=== PATIENT | male | born 1950 | race Caucasian/White ===

== ENCOUNTER → 2017-08-18 11:38 | Outpatient (CLI) | payer OTHER, SELFPAY ==
[2017-08-18 13:14] LABS: PSA,Total- Diagnostic 0.03 ng/mL (0.0-4.0)
== END ==
DX: Z85.46 Personal history of malignant neoplasm of prostate (principal)
CPT/HCPCS: 36415; 84153

== ENCOUNTER → 2017-10-28 05:47 | Outpatient (CLI) | payer OTHER, SELFPAY ==
[2017-10-28 07:36] LABS: PSA,Total- Diagnostic 0.02 ng/mL (0.0-4.0); Thyroid Stim Hormone (TSH) 2.41 uIU/mL (0.358-3.74)
== END ==
PROVIDERS: Visit Provider Urology
DX: C61 Malignant neoplasm of prostate (principal); E03.9 Hypothyroidism, unspecified; R97.20 Elevated prostate specific antigen [PSA]
CPT/HCPCS: 36415; 84153; 84443

== ENCOUNTER → 2017-12-09 06:16 | Outpatient (CLI) | payer OTHER, SELFPAY ==
--- NOTE | 2017-12-09 14:45 | NEURO ---
NCS and/or EMG Patient Report Ordering Doctor: Salinas Koehler DATE OF SERVICE: 12/09/17 Kenton Berman is a 67-year-old male presents for electrodiagnostic testing of the right lower limb. He reports numbness and tingling of the right great toe was muscle spasms in the right leg. Electrodiagnostic findings: Right peroneal motor nerve demonstrates normal distal latency, amplitude and conduction velocity. Normal right tibial motor response. Mildly prolonged right tibial F wave. H reflex borderline prolonged bilaterally. Sensory responses are within normal limits. Needle EMG testing shows no evidence of denervation with normal motor unit action potentials. Electrodiagnostic impression: This is an essentially normal study of the right lower limb. There is no electrodiagnostic evidence for peripheral neuropathy or lumbosacral radiculopathy. Next If there are any further questions, please not hesitate to contact me
== END ==
PROVIDERS: Visit Provider Family Medicine
DX: R20.2 Paresthesia of skin (principal)
CPT/HCPCS: 95886; 95910

== ENCOUNTER → 2017-12-25 05:51 | Outpatient (CLI) | payer OTHER, SELFPAY ==
[2017-12-25 06:38] LABS: Absolute Lymphocyte Count 1.58 X10^3/ul (0.83-4.51); Absolute Neutrophil Count 3.1 X10^3/uL (2.0-7.7); Basophil# 0.02 X10^3/uL; Basophil% 0.4 % (0-1); Eosinophil# 0.14 X10^3/uL; Eosinophils% 2.5 % (0-5); Hematocrit 43.5 % (40-54); Hemoglobin 14.5 g/dl (13.0-16.5); Lymphocyte # 1.58 X10^3/ul (4.0); Lymphocyte % 28.3 % (19-41); Mean Corp Hgb Conc 33.3 g/gl (32-36); Mean Corpuscular Hgb 30.3 pg (27.0-32.0); Mean Corpuscular Volume 90.8 fL (80-94); Mean Platelet Vol. 9.9 fl (6.2-12.0); Monocyte% 12.5 % (0-10); Neutrophil # 3.14 X10^3/uL (2.7-7.7); Neutrophil % 56.3 % (47-70); Platelet Count 253 K/mm3 (150-450); RBC Distribution Width CV 12.4 % (11.6-14.6); RBC Distribution Width SD 40.7 fl (35.1-43.9); Red Blood Count 4.79 M/mm3 (4.6-6.2); White Blood Count 5.6 K/mm3 (4.4-11.0)
[2017-12-25 06:39] LABS: Erythrocyte Sedimentation Rate 4 mm/hr (0-20); POSITIVE COUNT NO; POSITIVE DIFFERENTIAL NO; POSITIVE MORPHOLOGY NO
[2017-12-25 06:58] LABS: ALB/GLOB Ratio 1.1 RATIO (0.9-2.4); AST(SGOT) 27 U/L (15-37); Alanine Aminotransfer ALT/SGPT 36 U/L (16-61); Albumin, Serum 3.5 g/dL (3.2-5.0); Alkaline Phosphatase 73 U/L (45-117); Anion Gap 6 (5-15); BUN 23 mg/dL (7-18); BUN/Creat Ratio 24.1 RATIO (10-20); Calcium,Total 9.4 mg/dL (8.5-10.1); Chloride 109 mmol/L (98-107); Creatinine, Serum 0.96 mg/dL (0.70-1.30); EST Glomerular Filtration Rate 84 mL/min (>60); Est Glom Filt Rate - Afr Amer 101 mL/min (>60); Free T3 2.5 pg/mL (2.18-3.98); Globulin 3.2 g/dL (2.2-4.2); Glucose 91 mg/dL (74-106); Potassium 4.4 mmol/L (3.5-5.1); Protein, Total 6.7 g/dL (6.4-8.2); Rheumatoid Factor < 10.0 IU/mL (<15); Sodium Level 140 mmol/L (136-145); T3 Uptake 35 % (33-40); T4 Total, Thyroxin 7.9 ug/dL (4.5-12.1); T7 / Free Thyroxin Index 2.8 (1.4-4.5); Thyroid Stim Hormone (TSH) 2.31 uIU/mL (0.358-3.74)
[2017-12-25 07:01] LABS: Homocysteine 9.1 umol/L (3.2-10.7)
[2017-12-25 09:47] LABS: Hemoglobin A1c 5.6 % (4.2-6.3)
[2017-12-25 12:43] LABS: Vitamin B12 313 pg/mL (211-911)
[2017-12-28 16:10] LABS: Immunoglobulin A 295 mg/dL (61-437); Immunoglobulin G 746 mg/dL (700-1600); PROEL- A/G Ratio 1.4 (0.7-1.7); PROEL- Albumin 3.7 g/dL (2.9-4.4); PROEL- Alpha-1 Globulin 0.2 g/dL (0.0-0.4); PROEL- Alpha-2 Globulin 0.6 g/dL (0.4-1.0); PROEL- Gamma Globulin 0.8 g/dL (0.4-1.8); PROEL- Globulin, Total 2.7 g/dL (2.2-3.9); PROEL- TOTAL PROTEIN 6.4 g/dL (6.0-8.5)
[2017-12-29 08:43] LABS: Immunoglobulin M 64 mg/dL (20-172)
== END ==
PROVIDERS: Visit Provider Psychiatry & Neurology Neurology
DX: M54.9 Dorsalgia, unspecified (principal); R20.2 Paresthesia of skin
CPT/HCPCS: 36415; 80053; 82607; 82746; 82784; 83036; 83090; 83921; 84165; 84436; 84443; 84479; 84481; 85025; 85652; 86038; 86334; 86431

== ENCOUNTER → 2018-05-03 05:55 | Outpatient (CLI) | payer OTHER, SELFPAY ==
[2018-05-03 08:33] LABS: Color, Urine Yellow (Yellow); Glucose, Dipstick Normal (Normal); Ketone-Dipstick Negative (Negative); Leukocyte Esterase-Dipstick Negative /ul (Negative); Nitrite-Dipstick Negative (Negative); Occult Blood-Urine 10 /ul (Negative); Protein-Dipstick Negative (Negative); Specific Gravity, Urine 1.015 (1.002-1.030); Urine Bilirubin Dipstick Negative (Negative); Urine Clarity Clear (Clear); Urine Urobilinogen Normal (Normal)
[2018-05-03 08:38] LABS: Absolute Lymphocyte Count 2.12 X10^3/ul (0.83-4.51); Absolute Neutrophil Count 3.8 X10^3/uL (2.0-7.7); Basophil# 0.01 X10^3/uL; Basophil% 0.1 % (0-1); Eosinophil# 0.25 X10^3/uL; Eosinophils% 3.5 % (0-5); Hematocrit 45.9 % (40-54); Hemoglobin 14.8 g/dl (13.0-16.5); Lymphocyte # 2.12 X10^3/ul (4.0); Lymphocyte % 29.7 % (19-41); Mean Corp Hgb Conc 32.2 g/gl (32-36); Mean Corpuscular Hgb 29.5 pg (27.0-32.0); Mean Corpuscular Volume 91.6 fL (80-94); Mean Platelet Vol. 9.9 fl (6.2-12.0); Monocyte# 0.99 X10^3/uL; Monocyte% 13.8 % (0-10); Neutrophil # 3.77 X10^3/uL (2.7-7.7); Neutrophil % 52.8 % (47-70); POSITIVE COUNT NO; POSITIVE DIFFERENTIAL NO; POSITIVE MORPHOLOGY NO; Platelet Count 274 K/mm3 (150-450); Red Blood Count 5.01 M/mm3 (4.6-6.2); White Blood Count 7.2 K/mm3 (4.4-11.0)
[2018-05-03 09:07] LABS: ALB/GLOB Ratio 1.1 RATIO (0.9-2.4); AST(SGOT) 28 U/L (15-37); Alanine Aminotransfer ALT/SGPT 34 U/L (16-61); Albumin, Serum 3.5 g/dL (3.2-5.0); Alkaline Phosphatase 75 U/L (45-117); Anion Gap 7 (5-15); BUN 19 mg/dL (7-18); BUN/Creat Ratio 17.9 RATIO (10-20); Calcium,Total 9.5 mg/dL (8.5-10.1); Chloride 105 mmol/L (98-107); Cholesterol 140 mg/dL (200); Creatinine, Serum 1.06 mg/dL (0.70-1.30); EST Glomerular Filtration Rate 74 mL/min (>60); Est Glom Filt Rate - Afr Amer 90 mL/min (>60); Globulin 3.1 g/dL (2.2-4.2); Glucose 77 mg/dL (74-106); High Density Lipoprotein 45 mg/dL; PSA,Total- Diagnostic 0.03 ng/mL (0.0-4.0); Potassium 4.2 mmol/L (3.5-5.1); Protein, Total 6.6 g/dL (6.4-8.2); Sodium Level 140 mmol/L (136-145); Thyroid Stim Hormone (TSH) 3.56 uIU/mL (0.358-3.74); Triglycerides 84 mg/dL; Very Low Density Lipoprotein 17 mg/dL (5-40)
== END ==
PROVIDERS: Referring Provider Family Medicine; Visit Provider Family Medicine
DX: Z00.00 Encounter for general adult medical examination without abnormal findings (principal); I10 Essential (primary) hypertension; E03.9 Hypothyroidism, unspecified; C61 Malignant neoplasm of prostate
CPT/HCPCS: 36415; 80053; 80061; 81002; 84153; 84443; 85025

== ENCOUNTER → 2018-10-05 06:27 | Outpatient (CLI) | payer OTHER, SELFPAY ==
[2018-08-02 07:00] VITALS: BMI 27.2
[2018-10-05 08:45] LABS: PSA,Total- Diagnostic 0.03 ng/mL (0.0-4.0)
== END ==
PROVIDERS: Family Provider Family Medicine; PCP Family Medicine; Visit Provider Urology
DX: C61 Malignant neoplasm of prostate (principal)
CPT/HCPCS: 36415; 84153

== ENCOUNTER → 2019-05-06 05:50 | Outpatient (CLI) | payer OTHER, SELFPAY ==
[2018-08-02 07:00] VITALS: BMI 27.2
[2019-05-06 06:56] LABS: Hematocrit 47.8 % (40-54); Hemoglobin 15.4 g/dL (13.0-16.5); Mean Corp Hgb Conc 32.2 g/dL (32-36); Mean Corpuscular Hgb 29.8 pg (27.0-32.0); Mean Corpuscular Volume 92.6 fL (80-94); Mean Platelet Vol. 9.3 fl (6.2-12.0); Platelet Count 272 K/mm3 (150-450); RBC Distribution Width CV 12.6 % (11.6-14.6); RBC Distribution Width SD 43.2 fl (35.1-43.9); Red Blood Count 5.16 M/mm3 (4.6-6.2); White Blood Count 8.1 K/mm3 (4.4-11.0)
[2019-05-06 07:30] LABS: ALB/GLOB Ratio 1.2 RATIO (0.9-2.4); AST(SGOT) 25 U/L (15-37); Alanine Aminotransfer ALT/SGPT 15 U/L (16-61); Albumin, Serum 3.7 g/dL (3.2-5.0); Alkaline Phosphatase 78 U/L (45-117); Anion Gap 5 (5-15); BUN 22 mg/dL (7-18); Calcium,Total 10.3 mg/dL (8.5-10.1); Chloride 109 mmol/L (98-107); Cholesterol 178 mg/dL (200); Creatinine, Serum 1.05 mg/dL (0.70-1.30); EST Glomerular Filtration Rate 75 mL/min (>60); Est Glom Filt Rate - Afr Amer 91 mL/min (>60); Globulin 3.2 g/dL (2.2-4.2); Glucose 92 mg/dL (74-106); High Density Lipoprotein 50 mg/dL; PSA,Total - Annual Screen 0.04 ng/mL (0.00-4.00); Potassium 4.1 mmol/L (3.5-5.1); Protein, Total 6.9 g/dL (6.4-8.2); Sodium Level 142 mmol/L (136-145); Thyroid Stim Hormone (TSH) 4.07 uIU/mL (0.358-3.74); Triglycerides 88 mg/dL; Very Low Density Lipoprotein 18 mg/dL (5-40)
== END ==
PROVIDERS: Family Provider Family Medicine; PCP Family Medicine; Referring Provider Family Medicine; Visit Provider Family Medicine
DX: G47.9 Sleep disorder, unspecified (principal); G20 Parkinson's disease; G24.8 Other dystonia
CPT/HCPCS: 36415; 80053; 80061; 84153; 84443; 85027; G0103

== ENCOUNTER → 2019-08-25 15:34 | Outpatient (CLI) | payer OTHER, SELFPAY ==
[2018-08-02 07:00] VITALS: BMI 27.2
[2019-08-25 18:04] LABS: PSA,Total- Diagnostic 0.04 ng/mL (0.0-4.0)
== END ==
PROVIDERS: PCP Family Medicine; Referring Provider Urology; Visit Provider Urology
DX: C61 Malignant neoplasm of prostate (principal)
CPT/HCPCS: 36415; 84153

== ENCOUNTER → 2020-01-06 06:01 | Outpatient (CLI) | payer OTHER, SELFPAY ==
[2018-08-02 07:00] VITALS: BMI 27.2
[2020-01-06 08:00] LABS: PSA,Total- Diagnostic 0.02 ng/mL (0.0-4.0)
== END ==
PROVIDERS: PCP Family Medicine; Referring Provider Urology; Visit Provider Urology
DX: C61 Malignant neoplasm of prostate (principal)
CPT/HCPCS: 36415; 84153

== ENCOUNTER 2021-02-18 10:00 | Outpatient (RCR) | payer OTHER, SELFPAY ==
[2018-08-02 07:00] VITALS: BMI 27.2
--- NOTE | 2021-01-07 09:29 | HP.PTEVAL ---
Patient's Visit Information RAFA SOLER is a 70 year old M referred to Physical Therapy by Dr. Aaron Obrien MD with a diagnosis of Spondylolisthesis of lumbar ( L4-L5 fusion per pt). Date of Evaluation: 01/07/21 Physical Therapist: RHEA Alejandre - Visit Plan Frequency: 2x /Week Duration: 2 Months Plan: 2X/ week for 4 weeks for core stability, B LE strengthening (R more than the L), balance, gait training, with HEP - Subjective On October Fusion of L4-L5 vertebrea and he shaved off some HD material. He was having a lot of back pain and R leg pain but since surgery it has been a huge relief. He had no pain for a few weeks. He said to be. October 26 surgery for hyperparathyroidism and his bones were not strong due to lack of Calcium. He was told to be careful until his bones get stronger. Dr cleared him to flex and extend this past Thursday. Now he has been feeling some down the R leg. He would feel the R leg pain after being on the reccumbant stepper and not every time he rides it. It does not stay with him. He has more stiffness. This morning he was painful and he stretches and stretches his R piriformis and that makes him feel better. He stretches his calf and working on not turning his R foot out. He walks and that has gotten better. Now he walked for 50 min at a faster pace with no pain. He does recumbant stepper, starting to flex the spine in sitting. Started his sitting PD exercises. Pt has PD and Dx in August 2018 and he was doing well with managing it and he was really exercising a lot until Feb 2020 and he reinjured his back. First back surgery was September 2018. He was hitting the heavy bag and HD last Feb. His primary issue with PD is stiffness and balance. He took a step BW once he injured his back. He reports that he has more weakness in his R leg. His PD affects his R side more so than the L side. cleared him with no restrictions last Thursday. Pt has not fallen but has lost his balance quit a few times. If he looks up into his closet and takes a few steps BW he will lose his balance. - Objective Gait: Walks with wider JREZY and slight veering, flexed trunk, he works to ensure his arm swing is there, walks with R forefoot abducted. Pt is able to walk on heels and toes but struggles on the R side for DF on the R foot. Trunk AROM: Flex 50%, Ext 10%, SB 50% B, Rot 75% B. FGA: 17. Posture: Sits with flexed trunk and rounded shoulders. LE MMT:R hip flex 4-/5, R hip flex 4/5, B knee flex and ext 4/5, R hip abd 4-/5, L hip abd 4/5. -SLR B. R HS is much tighter than the L in supine.... Slight increase discomfort in R buttock and R calf with SLUMP test. Able to do 1/2 normal ROM bridge. Patellar DTR's: 0/3 - Balance Scores Functional Gait Assessment Score: 17 % Disability: 43.3400 - Goals Goal 1:: I HEP Goal Time Frame: 6-8 Weeks Goal 2:: Increase trunk AROM by 25% each plane painfree Goal Time Frame: 6-8 Weeks Goal 3:: Increase LE strength by 1/2 muscle grade (at time of the eval: LE MMT:R hip flex 4-/5, R hip flex 4/5, B knee flex and ext 4/5, R hip abd 4-/5, L hip abd 4/5) Goal Time Frame: 6-8 Weeks Goal 4:: Increase FGA by 5 points (at time of eval 17) Goal Time Frame: 6-8 Weeks Goal 5:: Be able to resume exercising without pain Goal Time Frame: 6-8 Weeks - Rehabilitation Potential Rehabilitation Potential: Good - Anticipated Interventions Patient/Client Instruction: Educate patient on: Condition, Plan of Care For the Purpose of:: To decrease pain, To increase ROM, To improve nutrient delivery to tissue, To improve muscle performance and motor function, To improve ability to perform ADL's, To increase tolerance to activity/condition/position, To improve performance and independence with ADL's, To decrease level of supervision to perform tasks, To improve ability of physical actions for home/community/work/leisure, To improve gait and locomotor functions, To improve health of tissue, To decrease soft tissue restriction, To increase flexibility/ROM, To improve balance, To improve safety with gait Therapeutic Exercise to Include: Strength training, Balance training, Coordination, Body mechanics, Postural training, Flexibilty training, Gait and locomotor training, Neuromotor development, Passive ROM, Active ROM, Dynamic Lumbar Stabilization For the Purpose of:: To decrease pain, To increase ROM, To improve nutrient delivery to tissue, To improve muscle performance and motor function, To improve ability to perform ADL's, To increase tolerance to activity/condition/position, To improve performance and independence with ADL's, To decrease level of supervision to perform tasks, To improve ability of physical actions for home/community/work/leisure, To improve gait and locomotor functions, To improve health of tissue, To decrease soft tissue restriction, To increase flexibility/ROM, To improve balance, To improve safety with gait Functional Training to Include: Gait training For the Purpose of:: To improve gait and locomotor functions, To improve safety with gait Thank you for the opportunity to evaluate your patient. For Medicare and Medicare HMO plans, please review the plan of care and approve it. It will need to be FAXED BACK to us at [phone] for Medicare purposes. For Medicare only, by signing this I certify the plan of care. Please let me know if there are questions or concerns regarding this plan of care. Physician Signature: Date:
--- NOTE | 2021-02-18 11:00 | HP.PTEVAL_ITS ---
Patient's Visit Information RAFA SOLER is a 70 year old M referred to Physical Therapy by Dr. Aaron Obrien MD with a diagnosis of Spondylolisthesis of lumbar ( L4-L5 fusion per pt). Date of Evaluation: 01/07/21 Physical Therapist: RHEA Alejandre - Visit Plan Frequency: 2x /Week Duration: 2 Months Plan: DC PT...to [facility] for back exercises. Pt to get script for PD and balance as he feels that he has lost a lot of that being down with his back issues. - Subjective On October Fusion of L4-L5 vertebrea and he shaved off some HD material. He was having a lot of back pain and R leg pain but since surgery it has been a huge relief. He had no pain for a few weeks. He said to be. October 26 surgery for hyperparathyroidism and his bones were not strong due to lack of Calcium. He was told to be careful until his bones get stronger. Dr cleared him to flex and extend this past Thursday. Now he has been feeling some down the R leg. He would feel the R leg pain after being on the reccumbant stepper and not every time he rides it. It does not stay with him. He has more stiffness. This morning he was painful and he stretches and stretches his R piriformis and that makes him feel better. He stretches his calf and working on not turning his R foot out. He walks and that has gotten better. Now he walked for 50 min at a faster pace with no pain. He does recumbant stepper, starting to flex the spine in sitting. Started his sitting PD exercises. Pt has PD and Dx in August 2018 and he was doing well with managing it and he was really exercising a lot until Feb 2020 and he reinjured his back. First back surgery was September 2018. He was hitting the heavy bag and HD last Feb. His primary issue with PD is stiffness and balance. He took a step BW once he injured his back. He reports that he has more weakness in his R leg. His PD affects his R side more so than the L side. cleared him with no restrictions last Thursday. Pt has not fallen but has lost his balance quit a few times. If he looks up into his closet and takes a few steps BW he will lose his balance. - Pain LB Pain Intensity (Out of 10): 0 Right leg Pain Intensity (Out of 10): Unrated - Objective Gait: Walks with wider JERZY and slight veering, flexed trunk, he works to ensure his arm swing is there, walks with R forefoot abducted. Pt is able to walk on heels and toes but struggles on the R side for DF on the R foot. Trunk AROM: Flex 50%, Ext 10%, SB 50% B, Rot 75% B. FGA: 17. Posture: Sits with flexed trunk and rounded shoulders. LE MMT:R hip flex 4-/5, R hip flex 4/5, B knee flex and ext 4/5, R hip abd 4-/5, L hip abd 4/5. -SLR B. R HS is much tighter than the L in supine.... Slight increase discomfort in R buttock and R calf with SLUMP test. Able to do 1/2 normal ROM bridge. Patellar DTR's: 0/3 - Balance/Special Test Scores Functional Gait Assessment Score: 18 % Disability: 40.0000 Oswestry Low Back Score: 1 - Goals Goal 1:: I HEP Goal Time Frame: 6-8 Weeks Goal 2:: Increase trunk AROM by 25% each plane painfree Goal Time Frame: 6-8 Weeks Goal 3:: Increase LE strength by 1/2 muscle grade (at time of the eval: LE MMT:R hip flex 4-/5, R hip flex 4/5, B knee flex and ext 4/5, R hip abd 4-/5, L hip abd 4/5) Goal Time Frame: 6-8 Weeks Goal 4:: Increase FGA by 5 points (at time of eval 17) Goal Time Frame: 6-8 Weeks Goal 5:: Be able to resume exercising without pain Goal Time Frame: 6-8 Weeks - Rehabilitation Potential Rehabilitation Potential: Good - Anticipated Interventions Patient/Client Instruction: Educate patient on: Condition, Plan of Care For the Purpose of:: To decrease pain, To increase ROM, To improve nutrient delivery to tissue, To improve muscle performance and motor function, To improve ability to perform ADL's, To increase tolerance to activity/condition/position, To improve performance and independence with ADL's, To decrease level of supervision to perform tasks, To improve ability of physical actions for home/community/work/leisure, To improve gait and locomotor functions, To improve health of tissue, To decrease soft tissue restriction, To increase flexibility/ROM, To improve balance, To improve safety with gait Therapeutic Exercise to Include: Strength training, Balance training, Coordination, Body mechanics, Postural training, Flexibilty training, Gait and locomotor training, Neuromotor development, Passive ROM, Active ROM, Dynamic Lumbar Stabilization For the Purpose of:: To decrease pain, To increase ROM, To improve nutrient delivery to tissue, To improve muscle performance and motor function, To improve ability to perform ADL's, To increase tolerance to activity/condition/position, To improve performance and independence with ADL's, To decrease level of supervision to perform tasks, To improve ability of physical actions for home/community/work/leisure, To improve gait and locomotor functions, To improve health of tissue, To decrease soft tissue restriction, To increase flexibility/ROM, To improve balance, To improve safety with gait Functional Training to Include: Gait training For the Purpose of:: To improve gait and locomotor functions, To improve safety with gait Thank you for the opportunity to evaluate your patient. For Medicare and Medicare HMO plans, please review the plan of care and approve it. It will need to be FAXED BACK to us at [phone] for Medicare purposes. For Medicare only, by signing this I certify the plan of care. Please let me know if there are questions or concerns regarding this plan of care. Physician Signatur e: Date:
--- NOTE | 2021-02-22 08:38 | HP.PTDCSUM_ITS ---
It has been my pleasure to treat RAFA SOLER referred by Dr. Aaron Obrien MD, with the diagnosis of Spondylolisthesis of lumbar ( L4-L5 fusion per pt) for a total of 9 visit(s). Discharge Date: 02/18/21 Please see the following information for a summary of their discharge status. Subjective: Pt reports that this is his last scheduled visit. He thinks he has def improved and made good progress. In terms of back surgery and pain level and getting back to normal activities he feels that he is 100%.... his progression of PD has made him take a step BW. His balance and movement he feels that he has lost somethings. He is getting leg strength back. He is not sure about his balance. Last time he had pain was a week ago when he was sitti ng for awhile and he had a little pain down the leg. He did have some pain with traveling after sitting for 2 hours it would tightnen up. LB Pain Intensity (Out of 10): 0 Right leg Pain Intensity (Out of 10): Unrated % Improvement: 100 Objective/Function: Pt is doing BOSU step up to balance with less LOB and more trunk control compared to when he first started thereapy. FGA 18. LE MMT: B hip flex, knee ext and knee flex, hip abd 5/5 and B hip ext 4/5. Trunk AROM flex 75%, Ext 25%, SB B 50%, Rot B 50% Goal 1:: I HEP Goal Progress: Goal Met Goal 2:: Increase trunk AROM by 25% each plane painfree Goal Progress: Progressing Goal 3:: Increase LE strength by 1/2 muscle grade (at time of the eval: LE MMT:R hip flex 4-/5, R hip flex 4/5, B knee flex and ext 4/5, R hip abd 4-/5, L hip abd 4/5) Goal Progress: Goal Met Goal 4:: Increase FGA by 5 points (at time of eval 17) Goal Progress: Progressing Goal 5:: Be able to resume exercising without pain Goal Progress: Goal Met Plan: DC PT...to [facility] exercises. Pt to get script for PD and balance as he feels that he has lost a lot of that being down with his back issues. Discharge Comments: DC PT to HEP and to get order for PD and balance. If there are questions or concerns regarding this patient's physical therapy, please feel free to call me at [phone]. Thank you for the referral of this patient. Sincerely, Maggi Hernandez, MPT Balance/Gait/Functional tests - Balance/Special Test Scores Functional Gait Assessment Score: 18 % Disability: 40.0000 Oswestry Low Back Score: 1
== END 2021-02-18 19:00 | disposition home or self-care (01) ==
LOC: PT 10:00
PROVIDERS: Referring Provider Neurological Surgery; Visit Provider Neurological Surgery
DX: M43.16 Spondylolisthesis, lumbar region (principal)
CPT/HCPCS: 97110; 97162; 97530

== ENCOUNTER 2021-03-26 10:00 | Outpatient (RCR) | payer OTHER, SELFPAY ==
--- NOTE | 2021-03-01 14:32 | HP.PTEVAL ---
Patient's Visit Information RAFA SOLER is a 70 year old M referred to Physical Therapy by BARRERA LOVE with a diagnosis of PD. Date of Evaluation: 03/01/21 Physical Therapist: RHEA Alejandre - Visit Plan Frequency: 1x/Week Duration: 3 Weeks Plan: 1X/ week for 3 weeks for dual tasking, high level balance, BW walking, gait training, turning with HEP. HEP: standing opp arm and leg, standing heel and toe raises, Standing hip august - Subjective Pt was dx in August 2018. He had back surgery November 15. Pt is struggling with balance with his PD, stiffness when the medicine wears off in later afternoon....fatigue. He does not have much of a tremor. Pt has fallen twice.. no injuries. He fell once the last week of December and the other was about 2 weeks ago. The first one [place] was [place] the beach and got feet crossed going out slider door with his hands full. The second one the pt was backing up from hanging something up in his closet... when backing up he will take short steps BW. If he remembers to take bigger steps he does better. He struggles with turning/pivioting in a nightmute. He has been working on basketball and skill work. Pt has some trouble in the evenings getting up out of a soft chair. Stairs: no issue unless tired and then uses the railings with alternating. - Objective FGA: 24. TUG 8.28. BE walking...short stride. Gait: walks with good stride length and heel to toe gait pattern with decrease trunk rotation and more forced arm swing. LE MMT: B hip flex 4-/5, B knee ext 4+/5, B knee flex 4+/5, B hip abd in sitting 4+/5. Sit to stand: pt is able to get out of the chair without using his arms. Stairs: up and down recip without a handrails. Pt did struggle with heel to toe gait pattern. Pt was able to do opposite palm up/palm down up struggled at times especially when adding in a metal task or addition of feet tapping. Pt had to concentrate but was able to do X 10 standing opp arm and leg as well as sitting. - Balance/Special Test Scores Functional Gait Assessment Score: 24 % Disability: 20.0000 Lower Extremity Functional Score: 62 - Goals Goal 1:: I HEP Goal Time Frame: 2-4 Weeks Goal 2:: Increase ability to walk with vertical and horizontal head turns Goal Time Frame: 2-4 Weeks Goal 3:: Be able to complete dual tasking exercises Goal Time Frame: 2-4 Weeks Goal 4:: Be able to BW walk with large controlled steps - Rehabilitation Potential Rehabilitation Potential: Good - Anticipated Interventions Patient/Client Instruction: Educate patient on: Condition, Plan of Care For the Purpose of:: To decrease pain, To increase ROM, To improve nutrient delivery to tissue, To improve muscle performance and motor function, To improve ability to perform ADL's, To increase tolerance to activity/condition/position, To improve performance and independence with ADL's, To decrease level of supervision to perform tasks, To improve gait and locomotor functions, To improve health of tissue, To decrease soft tissue restriction, To increase flexibility/ROM, To improve balance, To improve safety with gait Therapeutic Exercise to Include: Strength training, Balance training, Coordination, Body mechanics, Postural training, Flexibilty training, Gait and locomotor training, Neuromotor development, Passive ROM, Scapular Strength/Stabilization For the Purpose of:: To decrease pain, To improve muscle performance and motor function, To improve ability to perform ADL's, To increase tolerance to activity/condition/position, To improve performance and independence with ADL's, To improve ability of physical actions for home/community/work/leisure, To improve gait and locomotor functions, To improve health of tissue, To decrease soft tissue restriction, To increase flexibility/ROM, To improve balance, To improve safety with gait Functional Training to Include: Gait training For the Purpose of:: To improve gait and locomotor functions, To improve safety with gait Thank you for the opportunity to evaluate your patient. For Medicare and Medicare HMO plans, please review the plan of care and approve it. It will need to be FAXED BACK to us at [phone] for Medicare purposes. For Medicare only, by signing this I certify the plan of care. Please let me know if there are questions or concerns regarding this plan of care. Physician Signature: Date:
--- NOTE | 2021-07-31 13:48 | HP.PTDCSUM ---
It has been my pleasure to treat RAFA SOLER referred by BARRERA LOVE, with the diagnosis of PD for a total of 5 visit(s). Discharge Date: 03/26/21 Please see the following information for a summary of their discharge status. Subjective: Pt had cataract surgery and they did not want him to do much until this . Last week he had been having more tightness and stiffness in the LB and the stretches have helped some. He has been trying to get up and move a lot. He has no pain down the leg, it is just more tightness and more pain which he was not having. Icing helps some. Pt feels good about the PD exercises and the multi-tasking stuff is really helping and he feels his balance and posture has improved. LBP Pain Intensity (Out of 10): 2 % Improvement: 75 Objective/Function: Pt has to think about dual tasking activities but is able to figure them out. Pt is able to walk BW with increase strides and has much better balance with walking with head turns. Goal 1:: I HEP Goal Progress: Goal Met Goal 2:: Increase ability to walk with vertical and horizontal head turns Goal Progress: Goal Met Goal 3:: Be able to complete dual tasking exercises Goal Progress: Goal Met Goal 4:: Be able to BW walk with large controlled steps Goal Progress: Goal Met Plan: DC PT to HEP and PD H&W class Discharge Comments: DC PT to HEP and PD H&W class If there are questions or concerns regarding this patient's physical therapy, please feel free to call me at [phone]. Thank you for the referral of this patient. Sincerely, Maggi Hernandez, MPT Balance/Gait/Functional tests - Balance/Special Test Scores Functional Gait Assessment Score: 24 % Disability: 20.0000 Lower Extremity Functional Score: 69
== END 2021-03-26 19:00 | disposition home or self-care (01) ==
LOC: PT 10:00
DX: G20 Parkinson's disease (principal); R26.9 Unspecified abnormalities of gait and mobility
CPT/HCPCS: 97110; 97161; 97530

== ENCOUNTER 2023-09-29 11:30 | Outpatient (RCR) | payer MEDICARE, SELFPAY ==
--- NOTE | 2023-08-26 11:22 | HP.SP.EV_ITS ---
Visit History Visit Info Date of Eval: 08/26/23 Visit: 1 Slot Floorman: TIFFANIE History Attending Doctor: Referring Doctor: Reason for Referral: PD/RX HERE Medical Diagnosis: Parkingson's Disease Date of Onset of Diagnosis: 2018 Previous speech therapy: Yes Results: Evaluation only once in the past. Other Relevant Medical History/Diagnoses/Surgery: Back surgeries. Medications related to this diagnosis: Carbidopa/Levodopa every four hours and once in the middle of the night. Smoking Status: Never smoker Diagnosis Diagnosis: Parkinson's, Voice disorder Pain Is pain an issue with your current prescribed condition?: No Personal Preferred language: Danish Patient Allergies Allergies Allergies: Allergies No Known Allergies Allergy (Unverified 08/02/18 07:01) Subjective Voice Intake Water (ounces): 48 Coffee (ounces): 8 Tea (ounces): 0 Soda (ounces): 0 Energy drinks (ounces): 0 Sports drinks (ounces): 0 Objective Voice Date of Diagnosis Date of diagnosis: 2018 Previous Speech Therapy (If yes, describe): Yes Details of therapy: Evaluation only Medications Familiar with on/off effect: Yes Implantation Deep brain implantation (If yes, answer next question): No Objective data Objective Data: Objective data: Sound pressure level (SPL acoustic correlation of vocal loudness) was measured with a sound level meter at a distance of 40 cm from the patient's mouth. Average conversational loudness is 70-80 dB and sustained phonation duration is 15 to 20 seconds for a typical adult. Sustained Phonation Intensity (dB SPL): 86 Sustained Phonatin duration (seconds): 17 Is the individual stimulable to increase vocal intensity: Yes Vocal Intensity at Sentence Level (dB SPL): 70.8 Vocal Intensity at Conversational Level (dB SPL): 56.75 Subjective Clinical Impression Adult Clinical Impression Vocal fatigue: a 'tired' voice or feeling of excessive effort to phonate: Present Non-Phonatory Behaviors/Respiration Reduced loudness or vocal weakness: Present Infrequent breaths; talking too long on one breath: Present Reference: Neuro-QoL instrument Radiation Oncology Patient Other Other Voice: -: The patient reported that his and daughter both reported to him that he is difficult to hear. He is often asked to repeat when he speaks. He is well educated for on/off effect of medication and he is aware that he gets softer spoken when he is due for meds or in the evening. He reported frustration at not being heard. This level of volume is a safety issue if he is not able to communicate effectively on the phone to contact help if needed or communicate his wants and needs including medical needs in all settings. Plan Plan Plan: A vocal intensity based intervention approach applying LSVT principles to improve speech intelligibility will be used. Given the progressive nature of primary diagnosis, It is not anticipated for a full return to pre-morbid level of functioning, though will expect to achieve gains in speech intelligibility as well as maintain current level of functioning. To achieve this, the patient will require continued skilled speech-language intervention not only through the current intervention cycle but will likely benefit from repeated intervention cycles to maintain communication efficiency. Recommendations Treatment Warranted: Yes Treatment Warranted: Voice Progress Prognosis: Good Frequency Frequency: 2x /Week Duration: 4 Weeks Visits in this POC: 8 Patient/Family Goal Patient/Family Goal: Patient's goal is to be able to talk so everyone can hear him without being asked to repeat. Goals that are Established Determination:: Goals will be added/modified as deemed necessary and appropr iate. Therapy will be discontinued when results of re-evaluation indicate therapy is no longer needed or lack of progress has been documented. Goal #1-5 Goal #1: Patient will increase vocal loudness to reach a target sound pressure level of 75 dB CUSTOMER ENGAGEMENT REPRESENTATIVE with 1 cue during reading at the word and sentence level, which will help increase vocal respiratory support for functional communication. Goal #2: Patient will increase vocal loudness to reach a target sound pressure level of 75 dB CUSTOMER ENGAGEMENT REPRESENTATIVE with 1 cue during conversation for functional communication. Goal #3: Patient will independently demonstrate and utilize recommended compensatory articulation techniques (increased vocal intensity, reduced rate of speech, over-articulation) to facilitate improved speech intelligibility during expressive communication attempts with less than 2 cues during session, in 2 out of 3 sessions. Education Patient has Indicated that the Following Identified Educational Needs: None The Patient has indicated that they have no educational or learning abilities that may effect their care.: Yes Patient Instruction Patient Education: Diagnosis, Treatment Plan and Goals Person Taught: Patient Teaching Method: Discussion Response to teaching: Verbalize understanding
--- NOTE | 2023-12-06 14:21 | HP.SP.DC ---
ST Discharge Summary Discharged: Discharge: Kenton Berman is discharged from [facility] as of 09/23/23as he has met his goals. 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 Therapy was twice weekly with excellent attendance and home carry over as reported by the patient. He met his goals of increasing volume in functional tasks as well as over articulating sounds were completed. He can self-monitor at home using a sound pressure level ayah on his phone. Direct therapy is no longer needed at this time but anticipate that therapy may be warranted in the future as his disease progresses. Thank you for allowing me to participate in the care of this patient.
== END 2023-09-29 19:00 | disposition home or self-care (01) ==
LOC: SP 11:30
PROVIDERS: Referring Provider Psychiatry & Neurology Neurology; Visit Provider Psychiatry & Neurology Neurology
DX: G20.A2 Parkinson's disease without dyskinesia, with fluctuations (principal); R49.8 Other voice and resonance disorders; R49.0 Dysphonia
CPT/HCPCS: 92507; 92524

== ENCOUNTER 2024-08-07 12:42 | Emergency (ER) | payer MEDICARE, OTHER, SELFPAY ==
[2024-08-07 12:42] VITALS: BP 175/98; PULSE 63; RESP 16; TEMP 36.6; O2SAT 98; BMI 28.0
--- NOTE | 2024-08-07 13:10 | RAD_ITS ---
PROCEDURE: NECK FOR SOFT TISSUE REASON FOR EXAM: 73-year-old male, pain, concern for food stuck in throat. TECHNIQUE: AP and lateral view(s) of the soft tissues of the neck COMPARISON: None. FINDINGS: No radiopaque foreign body. Prevertebral and epiglottis contours appear normal. Mild degenerative changes throughout the cervical spine. RAD/Neck for Soft Tissue IMPRESSION: No radiopaque foreign body. Reading Location: [id number]
[2024-08-07] MEDS: Mag Hydrox/Al Hydrox/Simeth 30 ML UDC PO (13:48)
[2024-08-07] MEDS: Lidocaine 2% Viscous15 ML UDC 15 ML PO (13:48)
[2024-08-07 14:10] VITALS: BP 127/88; PULSE 86; RESP 15; O2SAT 97
[2024-08-07 14:43] VITALS: BP 131/82; PULSE 76; RESP 15; TEMP 36.3; O2SAT 96
--- NOTE | 2024-08-07 15:01 | EX.ED.DYSGE1 ---
HPI History of Present Illness Chief Complaint: Foreign Body Informant: patient, spouse/S.O. and family Narrative Narrative: 73-year-old male with a history of Parkinson's presenting to the emergency department out of concern for esophageal or throat foreign body. Patient states he was at scientology that had a cookout. He states he was having some noodles salad and some cobbler. States he feels a discomfort near his sternal notch. He states he feels it when he swallows. He has been handling secretions not vomiting. He is able to drink a Coke. But whenever he swallows he feels pain. He was able to take some pills after eating. He is never had a thing like this before but is aware that sometimes Parkinson's patients have motility issues with her esophagus. [facility] Medical History Thyroid disease Hemorrhoids Cancer HTN (hypertension) Home Medications ?Medication ?Instructions ?Recorded ?Last Taken ?Type levothyroxine 13 mcg capsule PO 08/09/17 Unknown History olmesartan 40 mg tablet PO 30 days ##30 08/09/17 Unknown History Allergy/AdvReac Type Severity Reaction Status Date / Time No Known Allergies Allergy Verified 08/07/24 12:44 Surgical History History of prostate surgery Social History Smoking Status: Never smoker alcohol intake: current alcohol intake frequency: a few times a week Alcohol type: beer ROS ROS ED Constitutional Constitutional ED: Denies chills, fever(s) or weight loss Eyes Eyes: Denies change in vision or diplopia ENT ENT ED: Reports sore throat; Denies ear pain or rhinorrhea Cardiovascular Cardiovascular: Denies chest pain, orthopnea, palpitations or racing heartbeat Respiratory/Chest Respiratory/Chest: Denies cough, dyspnea or orthopnea Gastrointestinal Gastrointestinal: Denies abdominal pain, diarrhea, nausea or vomiting Genitourinary Genitourinary ED: Denies dysuria, hematuria or urinary frequency Musculoskeletal Musculoskeletal: Denies arthralgias or myalgias Integumentary Denies abscess or rash Neurologic Neurologic: Denies headache(s) or weakness Psychiatric Psychiatric: Denies anxiety, depression, suicidal ideation or suicidal thoughts Endocrine Endocrinology: Denies polydipsia, polyphagia or polyuria Allergic/Immunologic Allergic/Immunologic ED: Denies mouth swelling, tongue swelling or urticaria EXAM Physical Exam Narrative Exam Narrative: 73-year-old male sitting the side of the bed drinking a Coke. He is handling secretions normally. Const Vital Signs: 08/07/24 12:42 08/07/24 12:54 08/07/24 14:10 Temperature 98 F Temperature Source Temporal Pulse Rate 63 86 Respiratory Rate 16 15 Respiratory Pattern Normal Blood Pressure 175/98 H 127/88 H Blood Pressure Mean 123 101 Pulse Ox 98 97 Oxygen Delivery Method Room Air Room Air 08/07/24 14:43 Temperature 97.4 F L Temperature Source Pulse Rate 76 Respiratory Rate 15 Respiratory Pattern Blood Pressure 131/82 H Blood Pressure Mean 98 Pulse Ox 96 Oxygen Delivery Method Positive well nourished and well developed General Appearance ED: well developed HEENT Reports normocephalic, head/scalp atraumatic and moist mucous membranes HEENT Narrative: There is no stridor. He is not spitting up. Eyes PERRL and EOMs intact bilaterally Neck no lymphadenopathy, supple and no JVD Resp normal respiratory effort and clear to auscultation bilaterally Cardio regular rate, regular rhythm and no murmurs GI normal to inspection, nondistended, normoactive bowel sounds and non-tender Palpation: soft Back/Spine no CVA tenderness and normal ROM Extremity normal to inspection General Extremety ED: Negative for edema General Extremity: Negative for edema Neuro oriented x3 and CN's II-XII intact bilaterally Sensorium / Orientation: alert Motor Exam: strength 5/5 throughout Psych mental status grossly normal Mood & Affect: Negative for depressed or tearful Skin no rashes or lesions noted and no wounds MDM MDM MDM Narrative Medical decision making narrative: Differential diagnosis includes esophageal food impaction, fragile abrasion laryngeal abrasion esophageal abrasion epiglottitis retropharyngeal peritonsillar abscess foreign body of throat My independent interpretation of the soft tissue of the neck is no obvious foreign body no significant soft tissue swelling noted. Patient continue to build to drink Coke. He received a GI cocktail. My recommendation is that he give it 24 to 48 hours to see if there is resolution as I would expect a abrasion to show significant improvement during this timeframe. If he is not improving of asked that he follow-up either with primary care possibly ENT or GI for scope. He and his family are comfortable with that plan. History & Record Review Discussion w/independent historian: Patient Lab Data Attestation: I reviewed the patient's lab results. Radiography Diagnostic Testing: Clinical Impression(s) from Imaging Studies Soft Tissue Neck X-Ray 08/07/24 13:10 IMPRESSION: No radiopaque foreign body. Reading Location: [facility] Discharge Plan Triage Chief Complaint: Foreign Body ED Provider: Juan Carlos Redmond Dx/Rx/DC Orders Clinical Impression: Abrasion of pharynx Instructions: ED Pharyngeal Abrasion Prescriptions: No Action olmesartan 40 mg tablet PO 30 Days Qty: 30 Patient Comments: levothyroxine 13 mcg capsule PO Primary Care Provider: Roland Gilbert Referrals: Jann Simon MD [Med Staff - Active Staff] - 1-2 Days if not improving Roland Gilbert, [Primary Care Provider] - Print Language: Chinese Disposition Disposition: Home, Self Care Discharge Date/Time: 08/07/24 14:43
== END 2024-08-07 14:43 | disposition home or self-care (01) ==
PROVIDERS: Emergency Provider Emergency Medicine; PCP Family Medicine; Visit Provider Emergency Medicine
DX: S10.11XA Abrasion of throat, initial encounter (principal); G20.A1 Parkinson's disease without dyskinesia, without mention of fluctuations; X58.XXXA Exposure to other specified factors, initial encounter
CPT/HCPCS: 70360; 99282

== ENCOUNTER 2024-08-29 11:00 | Outpatient (RCR) | payer MEDICARE, OTHER, SELFPAY | END 2024-08-29 19:00 | disposition home or self-care (01) | LOC: PT 11:00 | PROVIDERS: PCP Family Medicine | DX: M17.12 Unilateral primary osteoarthritis, left knee (principal); Z96.652 Presence of left artificial knee joint ==

== ENCOUNTER 2024-10-11 09:00 | Outpatient (RCR) | payer MEDICARE, OTHER, SELFPAY ==
--- NOTE | 2024-07-27 17:45 | HP.PTEVAL ---
Patient's Visit Information Visit Information Visit Information: RAFA SOLER is a 73 year old M referred to Physical Therapy by STEPHANIE MCDONOUGH with a diagnosis of PD, L TKR prehab. Date of Evaluation: 07/26/24 Physical Therapist: RHEA Alejandre Visit Plan Plan: Pt will continue with current exercise program and will return after surgery for rehab. Will make a plan and goals at that time. Subjective Subjective: Aug 10 he will be having a L TKR. He has a standard walker at home. He does not have a cane. Stairs has a railing and going up the rail is on the right. Bed and bathroom will be upstairs. Pain L knee pain: Pain Intensity (Out of 10): 3 Objective Objective: -4 to 109 L knee AROM UE MMT: R knee ext 31.5 and L 36.1 R knee flex 20.2 and L 20.5 Stairs: up and down the stairs recip with 1 hand rail on the R going up and a cane in the L. Instructed pt in gait with a standard walker. Balance/Special Test Scores Lower Extremity Functional Score: 50 Goals Goal 1:: I HEP Rehabilitation Potential Rehabilitation Potential: Good Anticipated Interventions Text: Thank you for the opportunity to evaluate your patient. For Medicare and Medicare HMO plans, please review the plan of care and approve it. It will need to be FAXED BACK to us at [phone] for Medicare purposes. For Medicare only, by signing this I certify the plan of care. Please let me know if there are questions or concerns regarding this plan of care. Physician Signature: Date:
--- NOTE | 2024-09-14 12:36 | HP.PTREVAL_ITS ---
Re-Evaluation Intro: STEPHANIE MCDONOUGH, It has been my pleasure to treat RAFA SOLER over the last 14 visits for PD, L TKR prehab. Please see the progress note below for an update on the physical therapy plan of care! Subjective Subjective: Pt reports that he is doing very well and feels he can walk without a cane for the most part Objective Objective/Function: -1 to 114 degrees knee flexion Struggles with turning 180 degrees and catching his foot. Stairs: up and sown recip but not a smooth motion with bending on descending the steps Gait: increase veering at times with occ LOB Swelling still persists in his calf as well Plan Plan Plan: Continue 2X/ week for 3 more weeks to continue to push end range flexion, side stepping, turning 180 degrees and more higher level balance challenges with HEP Balance/Gait/Functional tests Balance/Special Test Scores Lower Extremity Functional Score: 50 WOMAC Total Score: 20 WOMAC Percentage: 79.1700 Goals Goals Goal 1:: I HEP Goal Time Frame: 8-12 Weeks Goal Progress: Goal Met Goal 2:: Increase L knee AROM 0-125 degrees knee flexion Goal Time Frame: 8-12 Weeks Goal 3:: Be able to go up and down the steps recip with 1 hand rail with ease Goal Time Frame: 8-12 Weeks Goal 4:: Be able to walk with good heel to toe gait pattern with no AD with SBA Goal Time Frame: 8-12 Weeks Goal 5:: Be able to do X 10 sit to stands with no UE support with SBA Goal Time Frame: 8-12 Weeks Goal Progress: Goal Met Goal 6:: Be able to stand on his L leg for 20 seconds unsupported Goal Time Frame: 4-6 Weeks Anticipated Interventions Anticipated Interventions Patient/Client Instruction: Educate patient on: Condition and Plan of Care For the Purpose of:: To decrease pain, To decrease swelling/inflammation, To increase ROM, To improve nutrient delivery to tissue, To improve muscle performance and motor function, To improve ability to perform ADL's, To increase tolerance to activity/condition/position, To improve performance and independence with ADL's, To decrease level of supervision to perform tasks, To improve ability of physical actions for home/community/work/leisure, To improve gait and locomotor functions, To improve health of tissue, To decrease soft tissue restriction, To increase flexibility/ROM, To improve endurance, To improve balance, To improve safety with gait and To assume or resume ADL's Therapeutic Exercise to Include: Strength training, Endurance training, Balance training, Body mechanics, Postural training, Flexibilty training, Gait and loc omotor training, Neuromotor development, Passive ROM and Active ROM For the Purpose of:: To decrease pain, To decrease swelling/inflammation, To increase ROM, To improve nutrient delivery to tissue, To improve muscle performance and motor function, To improve ability to perform ADL's, To increase tolerance to activity/condition/position, To improve performance and independe nce with ADL's, To decrease level of supervision to perform tasks, To improve ability of physical actions for home/community/work/leisure, To improve gait and locomotor functions, To improve health of tissue, To decrease soft tissue restriction, To increase flexibility/ROM, To improve endurance and To improve safety with gait Functional Training to Include: Gait training For the Purpose of:: To improve gait and locomotor functions and To improve safety with gait Cryotherapy (ice pack, ice massage): Yes For the Purpose of:: To decrease pain, To decrease swelling/inflammation, To increase ROM and To improve nutrient delivery to tissue Re-Evaluation Ending Re-evaluation ending: Please do not hesitate to contact me at [phone] by phone or if you have questions or concerns regarding this new plan of care! Sincerely, Maggi Hernandez, MPT
--- NOTE | 2024-10-11 10:54 | HP.PTDCSUM ---
Discharge Summary D/C summary: It has been my pleasure to treat RAFA SOLER referred by STEPHANIE MCDONOUGH, with the diagnosis of PD, L TKR prehab for a total of 20 visit(s). Discharge Date: 10/11/24 Please see the following information for a summary of their discharge status. Subjective Subjective: Pt reports that he is doing well. He is walking without a cane a lot more. He uses walking sticks to walk the track. Pain L knee pain: Pain Intensity (Out of 10): 0 Overall Improvement % Improvement: 90 Objective Objective/Function: Steps: able to go up and down the steps recip with no hand rails. Did encourage the pt to go up and down slow to work on the control of his movements. Pt still struggles with picking his feet up to turn 180 degrees TUG 7:05 L knee for the following: girth patella 43.1 6 supra patella 51 knee flexion AROM 115 Knee ext AROM -4 Knee flexion MMT 17 and ext 21.6# L SLB 10 seconds max Goals Goal 1:: I HEP Goal Progress: Goal Met Goal 2:: Increase L knee AROM 0-125 degrees knee flexion Goal Progress: Progressing Goal 3:: Be able to go up and down the steps recip with 1 hand rail with ease Goal Progress: Goal Met Goal 4:: Be able to walk with good heel to toe gait pattern with no AD with SBA Goal Progress: Goal Met Goal 5:: Be able to do X 10 sit to stands with no UE support with SBA Goal Progress: Goal Met Goal 6:: Be able to stand on his L leg for 20 seconds unsupported Goal Progress: Progressing Plan Plan: DC PT to HEP and H&W routine D/C Information Discharge Comments: DC PT d/c sentence: If there are questions or concerns regarding this patient's physical therapy, please feel free to call me at [phone]. Thank you for the referral of this patient. Sincerely, Maggi Hernandez, MPT Balance/Gait/Functional tests Balance/Special Test Scores Lower Extremity Functional Score: 50 WOMAC Total Score: 10 WOMAC Percentage: 89.5900 Improvement % Improvement: 90
== END 2024-10-11 19:00 | disposition home or self-care (01) ==
LOC: PT 09:00
DX: M17.12 Unilateral primary osteoarthritis, left knee (principal); Z96.652 Presence of left artificial knee joint
CPT/HCPCS: 97016; 97110; 97161; 97164; 97530

== ENCOUNTER 2025-06-21 08:00 | Outpatient (RCR) | payer MEDICARE, OTHER, SELFPAY ==
--- NOTE | 2025-06-05 12:49 | HP.SP.EVAL ---
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 Therapy was twice weekly with excellent attendance and home carry over as reported by the patient. He met his goals of increasing volume in functional tasks as well as over articulating sounds were completed. Other Relevant Medical History/Diagnoses/Surgery: Total knee replacement, back surgeries. Medications related to this diagnosis: Carbidopa levodopa 6x a day, Azilect, clonazepam Smoking Status: Never smoker Diagnosis Diagnosis: Parkinson's Disease, Dysphonia Pain Is pain an issue with your current prescribed condition?: No Personal Preferred language: Belgian Patient Allergies Allergies Allergies: Allergies No Known Allergies Allergy (Verified 08/07/24 12:44) Subjective Voice Informal Questioner Do you scream (anger, sporting event, work, noisy envirmonment): Less than average Do you raise your voice (e.g. parenting, calling from room to room, etc.): Less than average Do you talk for long periods of time without a break (teacher, echeverria): Average Are you a talker: Average Do you clear your throat: Average How often do you use the telephone: Average Do you do impersonations, character voices or unusual sound effects: None Intubation Was the Client intubated: No Objective Voice Date of Diagnosis Date of diagnosis: 2018 Previous Speech Therapy (If yes, describe): Yes Medications Familiar with on/off effect: Yes Implantation Deep brain implantation (If yes, answer next question): No Objective data Objective Data: Objective data: Sound pressure level (SPL acoustic correlation of vocal loudness) was measured with a sound level meter at a distance of 40 cm from the patient's mouth. Average conversational loudness is 70-80 dB and sustained phonation duration is 15 to 20 seconds for a typical adult. Sustained Phonation Intensity (dB SPL): 89 Sustained Phonatin duration (seconds): 12 Is the individual stimulable to increase vocal intensity: Yes (increased to 70 dB when reading after cued.) Vocal Intensity at Paragraph Level (dB SPL): 64 Vocal Intensity at Conversational Level (dB SPL): 58 Reference: Neuro-QoL instrument HDQLIFE - Speech Difficulties In the past 7 days. It was difficult for other people to understand me.: Sometimes Is was difficult to speak clearly?: Sometimes In the past 7 days.. How often did you limit your social activites because you had difficulty speaking?: Never In the past 7 days... I had trouble speaking.: A little bit I was frustrated by my speech difficulties.: A little bit How much DIFFICULTY do you have... ...saying what you want to say?: No difficulty Score HDQLIFE Speech Difficulties Raw Score: 12 HDQLIFE Speech Difficulties T - Score: 52 Radiation Oncology Patient Plan Plan Plan: A vocal intensity based intervention approach applying LSVT principles to improve speech intelligibility will be used. Given the progressive nature of primary diagnosis, It is not anticipated for a full return to pre-morbid level of functioning, though will expect to achieve gains in speech intelligibility as well as maintain current level of functioning. To achieve this, the patient will require continued skilled speech-language intervention not only through the current intervention cycle but will likely benefit from repeated intervention cycles to maintain communication efficiency. Patient requested 4 weeks then he will use a program through [facility] starting some time in June. Recommendations Treatment Warranted: Yes Treatment Warranted: Voice Progress Prognosis: Good Frequency Frequency: 1x/Week Duration: 4 Weeks Visits in this POC: 4 Patient/Family Goal Patient/Family Goal: Patient wishes to become consistent with loudness and clarity. Goals that are Established Determination:: Goals will be added/modified as deemed necessary and appropriate. Therapy will be discontinued when results of re-evaluation indicate therapy is no longer needed or lack of progress has been documented. Goal #1-5 Goal #1: Patient will independently demonstrate and utilize recommended compensatory articulation techniques (increased vocal intensity, reduced rate of speech, over-articulation) to facilitate improved speech intelligibility during expressive communication attempts with less than 2 cues during session, in 2 out of 3 sessions. Goal #2: Patient will increase vocal loudness to reach a target sound pressure level of 75 dB [facility] with 1 cue during reading at the sentence level and paragraph, which will help increase vocal respiratory support for functional communication. Goal #3: Patient will increase vocal loudness to reach a target sound pressure level of 70 dB [facility]ISTER[facility] with 1 cue during conversation for functional communication. Education Patient has Indicated that the Following Identified Educational Needs: None The Patient has indicated that they have no educational or learning abilities that may effect their care.: Yes Patient Instruction Patient Education: Diagnosis, Treatment Plan and Goals Person Taught: Patient Teaching Method: Discussion Response to teaching: Has Prior Knowledge
--- NOTE | 2025-06-21 09:02 | HP.SP.DC ---
ST Discharge Summary Discharged: Discharge: Jose Berman is discharged from [facility] as of June 21, 2026. He completed 4 visits after his initial evaluation on 06/05/26 with a diagnosis of Parkinson?s Disease. He was treated for reduced volume as it is currently affecting his daily activities as his family reported he is becoming more quiet. His goals focused on compensatory strategies such as over articulation and breath support which he is able to do with cues. His goal of increasing volume while reading sentences (goal of 75 dB) was initially 74.1 dB and increased to 76.1 dB and paragraph level was 71.2 dB. His conversational volume (goal was 70 dB) increased from 60.9 dB to 64.9 dB with multiple cues per session. He requested discharge as he will be returning to a program through [facility] for SPE[facility]! Virtual program for Parkinson?s patients. Thank you for allowing me to participate in the care of this patient.
== END 2025-06-21 19:00 | disposition home or self-care (01) ==
LOC: SP 08:00
PROVIDERS: PCP Family Medicine; Referring Provider Psychiatry & Neurology Neurology; Visit Provider Psychiatry & Neurology Neurology
DX: G20.A2 Parkinson's disease without dyskinesia, with fluctuations (principal); R49.0 Dysphonia
CPT/HCPCS: 92507; 92524